=== PATIENT | male | born 1995 | race Caucasian/White ===

== ENCOUNTER 2017-09-26 19:43 | Emergency (ER) | payer SELFPAY ==
[2017-09-26] MEDS ORDERED: Milk Of Magnesia 30 ML UDCUP ONE (20:29)
[2017-09-26] MEDS ORDERED: Ondansetron ODT 4 MG TAB ONE (20:29)
[2017-09-26] MEDS ORDERED: Lidocaine Viscous Sol 2% 15 ml UD Cup ONE (20:29)
--- NOTE | 2017-09-26 20:45 | RAD ---
CHEST ONE VIEW ABDOMEN TWO VIEWS 09/26/17 HISTORY: Foreign body survey. Patient reports swallowing bone approximately one hour ago. Four episodes of vom iting since, epigastric pain reported. FINDINGS/IMPRESSION: The heart size is normal. The lungs are clear. No free air or differential fluid levels are seen in t he abdomen. The bowel gas pattern is unremarkable. No radiopaque foreign body is seen in the chest, a bdomen or pelvis. POS: [facility]
== END 2017-09-26 20:53 | disposition home or self-care (01) ==
LOC: SCSER 19:43
DX: K22.8 Other specified diseases of esophagus (principal); E07.9 Disorder of thyroid, unspecified; K21.9 Gastro-esophageal reflux disease without esophagitis; F41.9 Anxiety disorder, unspecified; F17.210 Nicotine dependence, cigarettes, uncomplicated
CPT/HCPCS: 74022; Q0162

== ENCOUNTER 2018-02-01 10:27 | Emergency (ER) | payer SELFPAY | END 2018-02-01 10:51 | disposition home or self-care (01) | LOC: SCSER 10:27 | DX: R05 Cough (principal); E05.90 Thyrotoxicosis, unspecified without thyrotoxic crisis or storm; K21.9 Gastro-esophageal reflux disease without esophagitis; F41.9 Anxiety disorder, unspecified; F17.210 Nicotine dependence, cigarettes, uncomplicated | CPT/HCPCS: 99283 ==